=== PATIENT | male | born 2000 | race Two or more races ===

== ENCOUNTER 2024-07-26 21:33 | Emergency (ER) | payer OTHER, SELFPAY ==
[2024-07-26 21:34] VITALS: BMI 22.5
[2024-07-26 21:44] VITALS: BP 124/60; PULSE 79; RESP 19; TEMP 36.8; O2SAT 99
--- NOTE | 2024-07-26 22:01 | XR_ITS ---
Examination: Foot, right, 3 views Technique: AP, oblique, lateral views foot, 3 views Date and time of exam: July 26, 2024, 1015 hours INDICATIONS: Nonhealing wound fifth digit beginning 4 days ago. FINDINGS: Soft tissue swelling about the fifth digit Faint ossification or calcification within the soft tissue at the fifth metatarsophalangeal joint No marshall cortical bone destruction No fracture No dislocation IMPRESSION: No marshall cortical bone destruction Consider elective follow-up MRI foot without contrast follow up, as clinically warranted
[2024-07-26 22:27] LABS: Basophils % (Auto) 0 % (0-2.5); Eosinophils # (Auto) 0.2 Thou/mm3 (0.0-0.5); Eosinophils % (Auto) 2 % (0-10); Hematocrit 37.9 % (41.0-53.0); Hemoglobin 13.7 g/dL (13.5-16.0); Immature Granulocytes % (Auto) 0 % (0-0); Immature Granulocytes Auto 0.03 Thou/mm3 (0.00-0.00); Lymphocytes # (Auto) 1.9 Thou/mm3 (1.0-4.8); Lymphocytes % (Auto) 17 % (10-50); Mean Corpuscular HGB Conc 36.1 g/dl (31.0-37.0); Mean Corpuscular Hemoglobin 32.2 pg (25.0-35.0); Mean Corpuscular Volume 89 fL (80-100); Monocytes % (Auto) 8 % (0-12); Neutrophils # (Auto) 8.2 Thou/mm3 (1.8-7.7); Neutrophils % (Auto) 72 % (37-80); Nucleated Red Blood Cell % 0 /100 WBC (0); Platelet Count 272 Thou/mm3 (140-440); RDW Standard Deviation 39.2 fL (35.1-43.9); Red Blood Count 4.26 Miln/mm3 (4.50-5.90); White Blood Count 11.3 Thou/mm3 (3.8-10.6)
[2024-07-26 22:37] LABS: Alanine Aminotransferase 24 U/L (10-49); Albumin, Serum 4.6 gm/dL (3.5-5.0); Albumin/Globulin Ratio 1.6 (1.2-2.2); Alkaline Phosphatase 89 U/L (46-116); Anion Gap 12 (7-16); Aspartate Amino Transferase 55 U/L (0-34); BUN/Creatinine Ratio 15 Ratio (12-20); Bilirubin,Total 0.9 mg/dL (0.3-1.2); Blood Urea Nitrogen 15 mg/dL (9-23); Calcium 9.8 mg/dL (8.3-10.6); Calcium (Corrected) 9.8 mg/dL (8.5-10.1); Carbon Dioxide 28.1 mMol/L (20.0-31.0); Chloride 100 mMol/L (98-107); Estimated Creatinine Clearance 124.4 mL/min (>60); Globulin 2.9 gm/dL (2.3-3.5); Glucose 96 mg/dL (74-106); Osmolality,Calculated 280 (275-295); Potassium 3.9 mMol/L (3.4-5.1); Sodium 140 mMol/L (136-145); Total Protein 7.5 gm/dL (5.7-8.2); eGFR > 60 See Note
--- NOTE | 2024-07-26 23:27 | PD.EDSKIN ---
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 he sustained a blister on the fifth digit and first digit of the right foot patient sustained 5 days ago due to worsening of the symptoms and swelling thus patient decided to start consult here in the emergency room Related Data Allergies Allergy/AdvReac Type Severity Reaction Status Date / Time No Known Allergies Allergy Unknown Uncoded 07/26/24 21:40 Course Orders Category Date Time Status Wound Care NOW Care 07/26/24 23:26 Active XR foot comp RT min 3V Stat Exams 07/26/24 22:01 Completed CBC Stat Lab 07/26/24 22:09 Completed CMP [Comprehensive Metabolic Panel] Stat Lab 07/26/24 22:09 Completed Clindamycin Vial [Cleocin vial] Med 07/26/24 23:26 Once 600 mg IM X1 ONE Vital Signs Vital signs: Vital Signs Temperature 98.3 F 07/26/24 21:44 Pulse Rate 79 07/26/24 21:44 Respiratory Rate 19 07/26/24 21:44 Blood Pressure 124/60 07/26/24 21:44 Pulse Oximetry (%) 99 07/26/24 21:44 Oxygen Delivery Method Room Air 07/26/24 21:44 Skin / Abscess / Foreign Body Medications / Prescriptions Medication administrations:: Medication Administration History Clindamycin Phosphate (Clindamycin Phos Inj 150 Mg/Ml Vial 6 Ml) 600 mg IM X1 ONE Stop: 07/26/24 23:27 Discharge Plan Prescriptions/Referrals Referrals: Les Stone MD [Primary Care Provider] - In 1 week Patient/Caregiver Discharge Instructions Print Language: Iranian
[2024-07-26] MEDS: CLINDAMYCIN PHOS INJ 150 MG/ML VIAL 6 ML 600 MG IM (23:53)
== END 2024-07-27 00:33 | disposition home or self-care (01) ==
PROVIDERS: Nurse Practitioner Family; Emergency Provider Emergency Medicine; PCP Family Medicine
DX: L03.115 Cellulitis of right lower limb (principal)
CPT/HCPCS: 36415; 73630; 80053; 85025; 96372; 99283; J0736